=== PATIENT | female | born 2005 | race Caucasian/White ===

== ENCOUNTER 2023-07-09 19:35 | Emergency (ER) | payer BC, MEDICAID ==
[2023-07-09] MEDS ORDERED: Acetaminophen 325 MG Tab PO ONE (20:39)
[2023-07-09] MEDS ORDERED: Ibuprofen 600 MG Tab PO ONE (20:39)
== END 2023-07-09 20:52 | disposition home or self-care (01) ==
LOC: JD.ED 19:35
DX: S00.93XA Contusion of unspecified part of head, initial encounter (principal); W00.0XXA Fall on same level due to ice and snow, initial encounter
CPT/HCPCS: 99283; A9270

== ENCOUNTER 2025-03-22 22:13 | Emergency (ER) | payer BC, MEDICAID ==
[2025-03-22 22:50] LABS: BASOPHILS ABSOLUTE AUTO 0.0 K/mm3 (0.0-0.2); BASOPHILS PERCENT AUTO 0.2 % (0.0-1.0); EOSINOPHILS ABSOLUTE AUTO 0.1 K/mm3 (0.0-0.4); EOSINOPHILS PERCENT AUTO 0.4 % (0.0-6.0); IMMATURE GRAN ABSOLUTE AUTO 0.04 K/mm3 (0.00-0.05); IMMATURE GRAN PERCENT AUTO 0.3 % (0.0-0.4); LYMPHOCYTES ABSOLUTE AUTO 1.7 K/mm3 (1.0-4.8); LYMPHOCYTES PERCENT AUTO 13.6 % (24.0-44.0); MEAN PLATELET VOLUME 9.9 fl (9.4-12.3); MONOCYTES ABSOLUTE AUTO 0.6 K/mm3 (0.0-0.8); MONOCYTES PERCENT AUTO 5.2 % (0.0-8.0); NEUTROPHILS ABSOLUTE AUTO 9.8 K/mm3 (1.8-7.7); NEUTROPHILS PERCENT AUTO 80.3 % (41.0-71.0); NRBC ABSOLUTE 0.00 (0.00-0.02); NRBC PERCENT 0.0 % (0.0-0.2); PLATELET COUNT,PLT 277 K/mm3 (150-400); RED BLOOD CELL COUNT 5.20 M/mm3 (4.10-5.30); WHITE BLOOD CELL COUNT,WBC 12.20 K/mm3 (3.9-11.3)
[2025-03-22] MEDS: Ondansetron 4 MG/2 ML SDV IVPUSH ONE (22:57)
[2025-03-22 23:07] LABS: APPEARANCE,URINE CLEAR (Clear); GLUCOSE,URINE NEGATIVE (Negative); OCCULT BLOOD,URINE 2+ (Negative)
[2025-03-22] MEDS ORDERED: Sodium Chloride 0.9% 10 ML Syringe FLUSH PRN (23:11)
[2025-03-22 23:20] LABS: A/G RATIO 1.1 (1-2); ALANINE AMINOTRANSFERASE,ALT 19.0 U/L (14-59); ASPARTATE AMNIOTRANSFERASE,AST 17.0 U/L (15-37); BILIRUBIN TOTAL 0.7 mg/dL (0.2-1.0); BLOOD UREA NITROGEN,BUN 10.0 mg/dL (7-18); CARBON DIOXIDE,CO2 27.0 mEq/L (21-32); CHLORIDE,CL 102.0 mEq/L (98-107); CREATININE 0.7 mg/dL (0.55-1.02); EST CRCL DRUG DOSING (CG) 113.06 mL/min; ESTIMATED GFR 126.0 mL/min (>60); GLUCOSE RANDOM 102.0 mg/dL (70-99); POTASSIUM,K 3.8 mEq/L (3.5-5.1); PROTEIN TOTAL,TP 8.1 g/dl (6.4-8.2); SODIUM,NA 137.0 mEq/L (136-145)
[2025-03-22] MEDS: Sodium Chloride 0.9% 10 ML Syringe FLUSH PRN (23:29)
[2025-03-22] MEDS: Iopamidol 612 MG/ML 100 ML Bottle IVPUSH ONE (23:29)
== END 2025-03-23 04:07 | disposition home or self-care (01) ==
LOC: JD.ED 22:13
DX: R10.31 Right lower quadrant pain (principal); Z79.899 Other long term (current) drug therapy; R82.90 Unspecified abnormal findings in urine
CPT/HCPCS: 36415; 74177; 76830; 80053; 81001; 83690; 83735; 84703; 85025; 87086; 96361; 96374; 96375; 96376; 99284; J0696; J2405; J7030; Q9967; J1171